=== PATIENT | female | born 1955 | race Caucasian/White ===

== ENCOUNTER → 2017-09-12 | Day surgery (SDC) | payer OTHER, MEDICARE ==
[2017-09-01 14:30] VITALS: Ht 162.6 cm; Wt 44.1 kg
[~2017-09-12] VITALS: Ht 162.6 cm; Wt 44.1 kg
[~2017-09-12] MED LIST: ALTERIL PO; BISA-16 PO; CHOL100041 PO; CHOL1TAB42 PO; CLON0.5T3 PO; DICY10CA55 PO; IBUP-1427 PO; LAMO1TAB21 PO; POTA10CA28 PO; PROM25TA9 PO; QUET1TAB34 PO; TIZA4CAP PO; TOPI100T45 PO
== END | disposition home or self-care (01) ==
LOC: EDSTATUS 07:00 → C.PAT 15:58
PROVIDERS: ATTEND Ophthalmology
DX: H35.372 Puckering of macula, left eye (principal); Z53.9 Procedure and treatment not carried out, unspecified reason

== ENCOUNTER → 2017-12-16 | Outpatient (CLI) | payer OTHER, MEDICARE ==
[~2017-12-16] MED LIST changes: -CHOL1TAB42 PO
--- NOTE | 2017-12-16 09:05 | DIAGNOSTIC IMAGING REPORT ---
GI W/AIR SMALL BOWEL ROUTINE CLINICAL HISTORY: CHRONIC CONSTIPATIONpelvic pain COMPARISON STUDY: None FLUOROSCOPY TIME: 3.4 minutes. FINDINGS: Patient initiates swallowing function well. The esophagus is normal in course and caliber. Gastroesophageal junction is unremarkable. Size and configuration of the stomach are normal. The duodenal bulb fills well. Duodenal sweep is unremarkable. There is a small diverticulum of the third portion of the duodenal sweep. Mucosal pattern and transit time throughout small bowel is within normal limits. Spot films the terminal ileum are unremarkable. IMPRESSION: Small diverticulum third portion duodenal sweep. Otherwise negative study. The above report was generated using voice recognition software. It may contain grammatical, syntax or spelling errors. Electronically signed by: Alfie Pérez M.D. 12/16/2017 9:04 AM Dictated Date/Time: 12/16/2017 9:02 AM
== END | disposition home or self-care (01) ==
LOC: C.RAD 07:58
PROVIDERS: ATTEND Colon & Rectal Surgery
DX: K59.09 Other constipation (principal); K57.10 Diverticulosis of small intestine without perforation or abscess without bleeding